=== PATIENT | male | born 1935 | race Caucasian/White ===

== ENCOUNTER 2017-07-28 15:54 | Inpatient (IN) | payer OTHER ==
[~2017-07-28] VITALS: Ht 167.6 cm; Wt 61.2 kg
[2017-07-28 03:42] VITALS: BP 130/61
[2017-07-28 15:59] VITALS: BP 169/69
[2017-07-28] MEDS ORDERED: LIPITOR 20 MG T20 M1 PO (16:09)
[2017-07-28 17:21] LABS: HEMATOCRIT 37.9 % (42.0-52.0); HEMOGLOBIN 12.9 gm/dL (14.0-18.0); MCH 30.8 pg (26.0-34.0); MCV 90.5 fL (80.0-100.0); MPV 7.3 fl. (7.2-11.1); RBC 4.18 mil/uL (4.50-6.00); WBC 6.2 thou/uL (4.0-11.0)
[2017-07-28 17:32] LABS: ANION GAP 10 mmol/L (7-16); BUN 16 mg/dL (7-18); CALCIUM 9.5 mg/dL (8.5-10.1); CHLORIDE 102 mmol/L (98-107); CO2 28 mmol/L (21-32); CREATININE 0.8 mg/dL (0.6-1.3); GLUCOSE 126 mg/dL (70-99); SODIUM 140 mmol/L (136-145)
[2017-07-28 17:39] LABS: ALBUMIN 3.9 g/dL (3.4-5.0); ALKALINE PHOSPHATASE 115 U/L (46-116); SGOT 85 U/L (15-37); SGPT 91 U/L (30-65); TOTAL BILIRUBIN 1.3 mg/dL (<0.1-1.0); TOTAL PROTEIN 7.3 g/dL (6.4-8.2); TROPONIN-I LEVEL <0.06 ng/mL (<0.06)
[2017-07-28 21:35] VITALS: BP 122/67
[2017-07-29 04:53] VITALS: BP 145/75
[2017-07-29 08:00] VITALS: BP 140/63
--- NOTE | 2017-07-29 09:31 | NUR ---
PATIENT WAS ADMITTED TO UNIT AT APPROXIMATELY 2200 FROM ER. PATIENT IS ALERT AND ORIENTED AND VSS. PAIN WELL CONTROLLED UPON COMING TO UNIT. ASSESSMENT CHARTED. PATIENT WAS ORIENTED TO UNIT AND POLICIES. FALL EDUCATION GIVEN AND FALL AGREEMENT SIGNED. PATIENT VERBALIZED UNDERSTANDING. IV IN LEFT WRIST-SL. PAIN MEDICATIONS GIVEN DURING SHIFT AND CHARTED. PATIENT INSTRUCTED TO USE CALL LIGHT WHEN NEEDING ASSISTANCE. HOURLY ROUNDS MADE. WILL CONTINUE WITH PLAN OF CARE AND NURSING TO MONITOR.
--- NOTE | 2017-07-29 11:14 | NUR ---
Pt is A&O. Resides at home with his dtr. 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 No DME. No hx of HH or SNF. Supportive family that is invovled in POC. Goal is to return home at vt. No needs anticipated. Following.
--- NOTE | 2017-07-29 13:07 | EKG ---
[place] [address] ELECTROCARDIOGRAM REPORT Name: JAZZMINE GALEAS Room: [address] IN ..#: [id number] Admission: 07/28/17 Attend Phys: Val Thorpe Discharge: Date of : 35 Report #: [id number] THIS REPORT FOR: //name// [facility] ED Test Date: 2017-07-28 Test Time: 17:24:47 Pat Name: JAZZMINE GALEAS Department: Room: Gender: Cash Register Operator: Solo HANKINS : 1935 Requested By: Bennett Otoole Order Number: [id number] MD: Erick Carr Measurements Intervals [place] Rate: 88 P: 50 PA: 177 QRS: -10 QRSD: 105 T: 45 QT: 368 QTc: 446 Interpretive Statements Sinus rhythm No previous ECG available for comparison Electronically Signed On 07-29-2017 13:07:39 CDT by Erick Carr [email or web address] <ELECTRONICALLY SIGNED> By: Erick Carr MD, [facility] 07/29/17 1307 1724 23 Erick Carr MD, [facility] /EPI
[2017-07-29 16:00] VITALS: BP 116/59
[2017-07-29 20:00] VITALS: BP 148/70
--- NOTE | 2017-07-30 04:27 | NUR ---
PATIENT ORIENTED X4 ON HOURLY ROUNDS. UP WITH STAND BY ASSIST. PAIN CONTROLLED WITH MORPHINE. EMESIS X1 AT APPOX 2000, ZOFRAN GIVEN. PATIENT UP IN CHAIR FOR MAJORITY OF NIGHT. VITALS STABLE ON 2L O2 NC. WILL CONTINUE TO MONITOR.
[2017-07-30 08:00] VITALS: BP 141/74
[2017-07-30 12:37] LABS: ALBUMIN 3.4 g/dL (3.4-5.0); CALCIUM 8.7 mg/dL (8.5-10.1); CREATININE 0.8 mg/dL (0.6-1.3); POTASSIUM 4.6 mmol/L (3.5-5.1); TOTAL BILIRUBIN 0.7 mg/dL (<0.1-1.0)
[2017-07-30 16:00] VITALS: BP 118/58
--- NOTE | 2017-07-30 17:15 | NUR ---
PATIENT REMAINED ALERT AND ORIENTED X'S 4. VITAL SIGNS AND SPO2 STABLE. IV CLEAN, FLUIDS INFUSING. PAIN WELL CONTROLLED WITH PAIN MEDS. CASE MANAGEMENT CONSULTED. PATIENT HAD NAUSEA AND VOMITING THROUGHOUT THE NIGHT AND A SMALL AMOUNT THIS MORNING. ZOFRAN GIVEN, NAUSEA HAS SUBSIDED. STAFF TRIED TO GET ABDOMINAL BINDER FOR PATIENT BUT WAS UNABLE TO DUE TO IT BEING THE WEEKEND. PATIENT'S BIGGEST CONCERN WAS CONSTIPATION. DR. HARDY ORDERED MAG CITRATE BUT PATIENT REFUSED TO DRINK IT. NURSE CONVINCED PATIENT TO TRY PRUNE JUICE, PATIENT HATED IT AND SAID HE WILL NOT DRINK THAT AGAIN. DR. MCCORMACK ORDERED ENEMA AND SUPPOSITORY BUT PATIENT HAD BM. VOIDED WITHOUT ISSUE. COMPLETED HOURLY ROUNDING. CALL LIGHT WITHIN REACH. WILL CONTINUE TO MONITOR.
[2017-07-30 20:00] VITALS: BP 127/50
--- NOTE | 2017-07-31 04:38 | NUR ---
PATIENT REMAINS ALERT AND ORIENTED X4 ON HOURLY ROUNDS. UP WITH STAND BY ASSIST TO BATHROOM. PAIN CONTROLLED WITH HYDROCODONE. IVF INFUSING ORDERED. VITALS STABLE ON 2L O2 NC. WILL CONTINUE TO MONITOR.
[2017-07-31 09:00] VITALS: BP 126/54
--- NOTE | 2017-07-31 10:32 | NUR ---
ASSUMED CARES OF PT AT 0700. PT IN BED, BED IN LOW LOCKED POSITION, FALL PRECAUTIONS IN PLACE. CALL BUTTON AND PERSONAL ITEMS IN PT REACH. PT A&O X4, HRRR PER AUSCULTATION, LCTAB/DIMINISHED LL. VSS ON RA, AFEBRILE, PERRLA, COOPERATIVE, PLEASANT. 2L O2 PRN. PT UP SBA, BUT WILL OCC. GET OOB WITHOUT CALLING, PT STATES HE GETS UP ON HIS OWN AT HOME, HE'S INDEPENDENT. LEFT WRIST IV PATENT WITH NS INFUSING 125 ML/HR. PAIN REPORTED IN RIGHT MID BACK, PO PAIN MEDS AND TOPICAL APPLIED, EFFECTIVE. SKIN INTACT, SCATTERED BRUISING NOTED. PT PRESENTLY IN RECLINER WATCHING TV WITH CALL BUTTON IN REACH. HOURLY ROUNDING TO CONTINUE. PT PROGRESSING TOWARDS GOAL.
[2017-07-31] MEDS ORDERED: HYDROCODON-ACE1 EAC7 PO (11:03)
[2017-07-31 11:39] VITALS: BP 126/54
[2017-07-31 13:17] VITALS: BP 126/54
--- NOTE | 2017-07-31 13:30 | NUR ---
SPOKE WITH PT.AND DAUGHTER ABOUT HOME HEALTH. HE HAS NEVER HAD HOME HEALTH BEFORE. HE CHOSE [facility] FOR HH THEY TAKE HIS INSURANCE. PT.DISCHARGING PRESENTLY. VINI CALLED AND SPOKE WITH SHAUNA/RADHA. SHE SAID A HH AIDE COULD NOT GO INTO HOME WITHOUT ANOTHER ENTITY, SUCH NURSING OR P.T. ORDERS OBTAINED FOR NURSING ,PT,SW AND AIDE. FAXED DISCHARGE SUMMARY AND ORDERS TO HER [phone]. PT.SAID HE KNEW HOW TO PUT ON HIS BRACE.
--- NOTE | 2017-07-31 13:51 | NUR ---
PT CLEARED FOR DISCHARGE. IV REMOVED. PT PERSONAL BELONGINGS PACKED, ROOM CHECKED. TLS BRACE DELIVERED PER REP AND FIT TO PT PROPERLY. DISCHARGE EDUCATION COMPLETED, STROKE EDUCATION COMPLETED. MEDICARE SIGNED, PT PRESCRIPTION GIVEN WITH CARE EDUCATION NOTE- SIGNED BY PATIENT. ALL QUESTIONS ANSWERED. HOURLY ROUNDING COMPLETED. DAUGHTER WITH PT. PT ESCORTED BY NURSING STAFF VIA AMBULATION TO CAR TO BE DRIVEN HOME BY DAUGHTER. DISCHARGE SUCCESSFUL AT 1348.
[2017-07-31 13:57] VITALS: BP 126/54
== END 2017-07-31 13:48 | disposition home health service (06) | DRG 551 ==
LOC: M.ERS 15:54 → M.TBA-ER 18:22 → M.ORTHSURG 18:22
PROVIDERS: Emergency Medicine Emergency Medical Services; ADMIT Internal Medicine
DX: S22.060A Wedge compression fracture of T7-T8 vertebra, initial encounter for closed fracture (principal); J96.01 Acute respiratory failure with hypoxia; S22.49XA Multiple fractures of ribs, unspecified side, initial encounter for closed fracture; B17.9 Acute viral hepatitis, unspecified; S22.050A Wedge compression fracture of T5-T6 vertebra, initial encounter for closed fracture; E78.00 Pure hypercholesterolemia, unspecified; K59.00 Constipation, unspecified; E78.5 Hyperlipidemia, unspecified; E86.0 Dehydration; W18.39XA Other fall on same level, initial encounter; Y93.89 Activity, other specified; Z90.89 Acquired absence of other organs; Z85.038 Personal history of other malignant neoplasm of large intestine; Z92.3 Personal history of irradiation; Z79.899 Other long term (current) drug therapy; Y92.89 Other specified places as the place of occurrence of the external cause; Y99.8 Other external cause status